=== PATIENT | female | born 1995 | race Caucasian/White ===

== ENCOUNTER 2022-06-02 08:40 | Day surgery (SDC) | payer OTHER ==
[2022-06-02] MEDS ORDERED: LACTATED RINGERS 1,000 ML IV ONE ×2 (08:42→10:46)
[2022-06-02 08:58] LABS: HCG UR QUAL NEGATIVE
--- NOTE | 2022-06-02 09:38 | ANESTHESIA ---
Pre-Anesthesia VS, & Labs - Diagnosis TATYANA 2 - Procedure LEEP Vital Signs: Temp Pulse Resp BP Pulse Ox O2 Flow Rate 36.7 C 64 16 126/67 97 0 06/02/22 09:01 06/02/22 09:01 06/02/22 09:01 06/02/22 09:01 06/02/22 09:01 06/02/22 09:01 Height: 5 ft 5 in Weight (kg): 69 kg Body Mass Index: 25.3 BMI Classification: Overweight - NPO >8 hours - Is Patient ?: No Home Medications and Allergies Home Medications: Ambulatory Orders Multivitamin 1 tab ORAL DAILY 06/02/22 Multivitamin 1 tab ORAL DAILY 06/02/22 Allergies/Adverse Reactions: Allergies Allergy/AdvReac Type Severity Reaction Status Date / Time No Known Drug Allergies Allergy Verified 06/02/22 09:11 Anes History & Medical History - Anesthetic History Family history of Anesthesia Complications: Denies Family history of Malignant Hyperthermia: Denies - Medical History Cardiovascular: reports: None Pulmonary: reports: None Gastrointestinal: reports: None Urinary: reports: None Neuro: reports: None Musculoskeletal: reports: None Endocrine/Autoimmune: reports: None Skin: reports: None Smoking Status: Never smoker Psychosocial: reports: Alcohol (1-2 drinks per week) History of Cancer?: No Exam General: Alert, Oriented x3, Cooperative, No acute distress Dental: WNL Mouth Openin Fingerbreadth Neck Mobility: Normal Mallampati classification: II Thyromental Distance: 4-6 cm Mental/Cognitive Status: Alert/Oriented X3, Normal for patient Plan Anesthesia Type: General Consent for Procedure(s) Verified and Reviewed: Yes Code Status: Attempt Resuscitation ASA classification: 1-Healthy patient Is this case an emergency?: No
[2022-06-02] MEDS ORDERED: POTASSIUM IODIDE/IODINE 14 ML SOLUTION ONE (09:41)
[2022-06-02] MEDS ORDERED: NALOXONE 0.4 MG/ML VIAL IVP PRN (09:42)
[2022-06-02] MEDS ORDERED: HYDROmorphone 0.5 MG/0.5 ML SYRINGE IVP PRN (09:42)
[2022-06-02] MEDS ORDERED: fentaNYL 100 MCG/2 ML VIAL IVP PRN (09:42)
[2022-06-02] MEDS ORDERED: ATROPINE ABBOJECT 1 MG/10 ML SYRINGE IVP PRN (09:42)
[2022-06-02] MEDS ORDERED: LIDOCAINE-MPF 1% 30 ML VIAL ONE (09:42)
[2022-06-02] MEDS ORDERED: MORPHINE 2 MG/ML CARPUJECT IVP PRN (09:42)
[2022-06-02] MEDS ORDERED: ONDANSETRON 4 MG/2 ML VIAL IVP PRN (09:42)
[2022-06-02] MEDS ORDERED: MIDAZOLAM 2 MG/2 ML VIAL ONE (09:48)
[2022-06-02] MEDS ORDERED: PROPOFOL 200 MG/20 ML VIAL IVP ONE (09:48)
[2022-06-02] MEDS ORDERED: ONDANSETRON 4 MG/2 ML VIAL ONE (09:49)
[2022-06-02] MEDS ORDERED: DEXAMETHASONE 4 MG/ML VIAL ONE (09:49)
[2022-06-02] MEDS ORDERED: fentaNYL 100 MCG/2 ML VIAL ONE (09:49)
[2022-06-02] MEDS ORDERED: KETOROLAC 30 MG/ML VIAL ONE (09:49)
[2022-06-02] MEDS ORDERED: LACTATED RINGERS 1,000 ML IV SCH (10:00)
[2022-06-02] MEDS ORDERED: LIDOCAINE 1% 50 ML MDV SUBQ ONE ×2 (10:26→10:39)
[2022-06-02 12:15] VITALS: BP 131/61
--- NOTE | 2022-06-02 16:16 | OPERATIVE REPORT ---
Operative Report - General Procedure Date: 06/02/22 Planned Procedure: Loop electrosurgical excision procedure (LEEP) Pre-Op Diagnosis: CIN2 Procedure Performed: Loop electrosurgical excision procedure (LEEP) Post Op Diagnosis: CIN2 - Procedure Note Primary Surgeon: Yudith Nash DO Anesthesia Provider: Soha Lauren CRNA Pathology: Cervix LEEP specimen Estimated Blood Loss (mL): 10 Indications: CIN2 Findings: Normal appearing cervix Complications: None - Other Other Information/Narrative: Transported to OR. Anesthesia obtained. Placed in dorsal lithotomy. Prepped and draped in sterile fashion. Speculum placed. Cervix visualized. Acetic acid applied to visualize areas of prior biopsy sites (10 and 11 o'clock). 1% lidocaine infiltrated ~3cc. 2x1cm loop electrode used to excise distal sample of cervix which included all of the transformation zone and portion of endocervix. Sample was circular piece of cervix and obtained in one pass. Ball cautery was used for hemostasis. Hemostasis noted. Monsels applied to cervix. All instruments removed. Counts correct x2. Transported to PACU in stable condition.
--- NOTE | 2022-06-03 08:20 | ANESTHESIA POST OP EVALUATION ---
Anesthesia Post Eval - Post Anesthesia Eval Vitals: Last Vital Signs Temp 36.3 C L 06/02/22 12:00 Pulse 59 L 06/02/22 12:00 Resp 16 06/02/22 12:00 BP 131/61 H 06/02/22 12:00 Pulse Ox 98 06/02/22 12:00 O2 Flow Rate 0 06/02/22 09:01 CV Function Including HR & BP: Stable Pain Control: Satisfactory Nausea & Vomiting: Negative Mental Status: Baseline Respiratory Status: Airway Patent Hydration Status: Satisfactory Anesthesia Complications: None
== END 2022-06-02 08:41 | disposition home or self-care (01) ==
LOC: SDS 08:40
PROVIDERS: ATTEND Obstetrics & Gynecology
PROC: 0UBC7ZX Excision of Cervix, Via Natural or Artificial Opening, Diagnostic (ICD-10-PCS; principal; 2022-06-02 09:45)
DX: N87.1 Moderate cervical dysplasia (principal); Z32.02 Encounter for pregnancy test, result negative
CPT/HCPCS: 57460; 81025; J7120